=== PATIENT | male | born 1980 | race Caucasian/White ===

== ENCOUNTER 2022-04-26 04:46 | Observation (INO) | payer MEDICAID ==
[2022-04-26] VITALS (9 sets, daily range): BP systolic 107–125; BP diastolic 61–100
[~2022-04-26] VITALS: Ht 167.6 cm; Wt 90.9 kg
[2022-04-26 07:36] LABS: BASOPHILS # (AUTO) 0.2 X10'3 (0-0.2); BASOPHILS % (AUTO) 1.2 % (0-1); EOSINOPHILS # (AUTO) 0.4 X10'3 (0-0.9); EOSINOPHILS % (AUTO) 2.8 % (0-6); HEMATOCRIT 48.5 % (42.0-52.0); LYMPHOCYTES # (AUTO) 3.6 X10'3 (1.1-4.8); MEAN CORPUSCULAR HEMOGLOBIN 27.8 PG (27.0-31.0); MEAN CORPUSCULAR HGB CONC 33.1 g/dL (33.0-36.5); MEAN CORPUSCULAR VOLUME 84.1 FL (78-98); MEAN PLATELET VOLUME 7.6 FL (7.4-10.4); MONOCYTES % (AUTO) 6.7 % (2-12); NEUTROPHILS # (AUTO) 9.2 X10'3 (1.8-7.7); NEUTROPHILS % (AUTO) 64.3 % (42-75); PLATELET COUNT 345 X10'3 (140-440); RED BLOOD COUNT 5.76 X10'6 (4.70-6.10); RED CELL DISTRIBUTION WIDTH 14.1 % (11.5-14.5); WHITE BLOOD COUNT 14.2 X10'3 (4.5-11.0)
[2022-04-26 07:48] LABS: ALANINE AMINOTRANSFERASE 34 U/L (12-78); ALBUMIN 4.1 G/DL (3.4-5.0); ALKALINE PHOSPHATASE 76 IU/L (46-116); ANION GAP 11 (8-16); ASPARTATE AMINO TRANSFERASE 18 U/L (10-37); BILIRUBIN,TOTAL 0.5 MG/DL (0.1-1.0); BLOOD UREA NITROGEN 24 MG/DL (7-18); BUN/CREATININE RATIO 28.2 (5.4-32.0); CALCIUM 9.4 MG/DL (8.5-10.1); CHLORIDE 102 MMOL/L (99-107); CREATININE 0.85 MG/DL (0.60-1.10); GLUCOSE 158 MG/DL (70-104); POTASSIUM 3.9 MMOL/L (3.5-5.1); SODIUM 136 MMOL/L (135-145); TOTAL CARBON DIOXIDE 23.4 MMOL/L (24-32); TOTAL PROTEIN 8.3 G/DL (6.4-8.2); eGFR > 90 ML/MIN
--- NOTE | 2022-04-26 10:43 | NUR ---
Pt awake in no acute distress,continues to be monitored, disposition pending.
[2022-04-26] MEDS ORDERED: acetaminophen 325mg tablet PO PRN (11:30)
[2022-04-26] MEDS ORDERED: mag hydrox/Alum hydrox/simeth 30ml oral suspension PO PRN (11:30)
[2022-04-26] MEDS ORDERED: PERFLUTREN PROTEIN-A MICROSPHR (Optison) 0.22 MG/ML 3ML VIAL IV ONE (11:30)
[2022-04-26] MEDS ORDERED: aminophylline 500mg/20ml vial IV PRN (11:30)
[2022-04-26] MEDS ORDERED: ondansetron/PF 4mg/2ml inj IV PRN (11:30)
[2022-04-26] MEDS ORDERED: nitroGLYCERIN 0.4mg SUBLingual tab SL PRN (11:30)
[2022-04-26] MEDS ORDERED: normal saline 1000ml 1,000 ML IV SCH (11:30)
[2022-04-26] MEDS ORDERED: magnesium hydroxide 30ml (MOM) UD suspension PO PRN (11:30)
[2022-04-26] MEDS ORDERED: regadenoson 0.4mg/5ml syringe IV PRN (11:30)
[2022-04-26] MEDS ORDERED: morphine 2 MG/ML inj. syringe IV PRN ×2 (11:30)
[2022-04-26] MEDS ORDERED: metoprolol tartrate 1mg/ml inj IV PRN (11:30)
[2022-04-26] MEDS ORDERED: DEXT30CA6 PO (13:09)
[2022-04-26] MEDS ORDERED: ALBU2.5V10 NEB (13:09)
[2022-04-26] MEDS ORDERED: LISI5TAB22 PO (13:09)
[2022-04-26] MEDS ORDERED: OMEP20CA16 PO (13:09)
[2022-04-26] MEDS ORDERED: PROP20TA6 PO (13:09)
[2022-04-26] MEDS ORDERED: TRAZ-251 PO (13:09)
[2022-04-26] MEDS ORDERED: METF-900 PO (13:09)
[2022-04-26] MEDS ORDERED: ACET-1 PO (13:09)
[2022-04-26] MEDS ORDERED: SULF1TAB45 PO (13:09)
[2022-04-26] MEDS ORDERED: BECL10.62 PO (13:09)
[2022-04-26] MEDS ORDERED: ATOR40TA72 PO (13:09)
[2022-04-26] MEDS ORDERED: SERT-433 PO (13:09)
[2022-04-26] MEDS ORDERED: GABA800T11 PO (13:09)
[2022-04-26] MEDS ORDERED: CYCL-1 PO (13:09)
--- NOTE | 2022-04-26 14:09 | NUR ---
dr mancuso in to assess patient, made aware patient at [place].
[2022-04-26] MEDS ORDERED: propranolol 10mg tablet PO PRN (14:35)
[2022-04-26] MEDS ORDERED: acetaminophen w/codeine (30MG) #3 tablet PO PRN (14:35)
[2022-04-26] MEDS ORDERED: traZODone 50mg tablet PO PRN (14:35)
--- NOTE | 2022-04-26 16:29 | NUR ---
Discontinued pt's IV,applied dressing to site, d/c instructions given, pt verbalized understanding. Pt d/c via ambulatory in good condition.
[2022-04-26] MEDS ORDERED: docusate sod 100mg capsule PO SCH (20:00)
[2022-04-26] MEDS ORDERED: albuterol 2.5 MG/3 ML nebule NEB SCH (21:00)
[2022-04-26] MEDS ORDERED: budesonide 0.5mg/2ml UD nebule IH SCH (21:00)
[2022-04-26] MEDS ORDERED: cyclobenzaprine 10mg tablet PO SCH (21:00)
[2022-04-26] MEDS ORDERED: gabapentin 400mg capsule PO SCH (21:00)
[2022-04-27] MEDS ORDERED: sertraline 50mg tablet PO SCH (08:00)
[2022-04-27] MEDS ORDERED: pantoprazole 40mg Tablet.DR PO SCH (08:00)
[2022-04-27] MEDS ORDERED: lisinopril 5mg tablet PO SCH (08:00)
[2022-04-27] MEDS ORDERED: atorvastatin 20mg tablet PO SCH (08:00)
[2022-04-27] MEDS ORDERED: enoxaparin 40mg/0.4ml syringe SUBCUT SCH (08:00)
== END 2022-04-26 16:35 | disposition home or self-care (01) ==
LOC: ER 04:47 → ED HOLD 11:34
PROVIDERS: ADMIT Family Medicine; ATTEND Family Medicine
DX: R07.89 Other chest pain (principal); F41.9 Anxiety disorder, unspecified; I10 Essential (primary) hypertension; E11.9 Type 2 diabetes mellitus without complications; E78.5 Hyperlipidemia, unspecified; F15.10 Other stimulant abuse, uncomplicated; F17.210 Nicotine dependence, cigarettes, uncomplicated; Z79.899 Other long term (current) drug therapy
CPT/HCPCS: 36415; 71045; 78452; 80053; 83880; 84484; 85025; 93005; 93017; 93306; 96360; 96361; 99285; A9500; G0378; J2785; J7030

== ENCOUNTER 2022-06-18 23:59 | Emergency (ER) | payer MEDICAID ==
[~2022-06-18] VITALS: Ht 167.6 cm; Wt 72.5 kg
[~2022-06-18 23:59] MED LIST: ACET-1 PO; ALBU2.5V10 NEB; ATOR40TA72 PO; BECL10.62 PO; CYCL-1 PO; DEXT30CA6 PO; GABA800T11 PO; LISI5TAB22 PO; METF-900 PO; OMEP20CA16 PO; PROP20TA6 PO; SERT-433 PO; SULF1TAB45 PO; TRAZ-251 PO
[2022-06-19 00:26] VITALS: BP 126/86
== END 2022-06-19 05:26 | disposition left against medical advice (07) ==
LOC: ER 23:59
DX: M79.601 Pain in right arm (principal); Z53.21 Procedure and treatment not carried out due to patient leaving prior to being seen by health care provider

== ENCOUNTER 2022-07-25 18:05 | Emergency (ER) | payer MEDICAID ==
[~2022-07-25] VITALS: Ht 167.6 cm; Wt 90.9 kg
[2022-07-25 18:11] VITALS: BP 142/82
[2022-07-25] MEDS ORDERED: CEPH-585 PO (19:01)
[2022-07-25] MEDS ORDERED: TETanus/Pertussis (Acell)/Diphther VAC/PF (Tdap-Adult) 0.5ml syringe IMVAC ONE (19:05)
[2022-07-25] MEDS ORDERED: ketorolac trometh inj. 60 MG/2 ML VIAL IM ONE (19:05)
[2022-07-25] MEDS ORDERED: LIDOcaine 1% w/EPI 1:100,000 30ml vial (MDV) IJ ONE (19:05)
[2022-07-25] MEDS ORDERED: cephalexin 500mg capsule PO ONE (19:20)
== END 2022-07-25 19:46 | disposition home or self-care (01) ==
LOC: ER 18:06
DX: T80.29XA Infection following other infusion, transfusion and therapeutic injection, initial encounter (principal); Z79.899 Other long term (current) drug therapy; X58.XXXA Exposure to other specified factors, initial encounter; Y93.89 Activity, other specified; Y92.89 Other specified places as the place of occurrence of the external cause; Y99.8 Other external cause status
CPT/HCPCS: 10060; 90471; 90715; 96372; 99284; J1885

== ENCOUNTER 2022-08-27 02:54 | Emergency (ER) | payer MEDICAID ==
[~2022-08-27] VITALS: Ht 167.6 cm; Wt 90.9 kg
[~2022-08-27 02:54] MED LIST changes: +CEPH-585 PO
[2022-08-27 02:58] VITALS: BP 140/90
[2022-08-27] MEDS ORDERED: acetaminophen 325mg tablet PO ONE (04:30)
[2022-08-27] MEDS ORDERED: ketorolac trometh inj. 60 MG/2 ML VIAL IM ONE (04:30)
[2022-08-27] MEDS ORDERED: proCHLORperazine 10 MG/2 ml inj IM ONE (04:30)
== END 2022-08-27 05:03 | disposition home or self-care (01) ==
LOC: ER 02:55
DX: R03.0 Elevated blood-pressure reading, without diagnosis of hypertension (principal); R51.9 Headache, unspecified
CPT/HCPCS: 96372; 99284; J0780; J1885

== ENCOUNTER 2022-10-16 08:29 | Emergency (ER) | payer MEDICAID ==
[~2022-10-16] VITALS: Ht 167.6 cm; Wt 95.0 kg
[2022-10-16 08:35] VITALS: BP 139/89
[2022-10-16] MEDS ORDERED: ibuprofen tablet 400 MG TABLET PO ONE (10:30)
== END 2022-10-16 12:09 | disposition home or self-care (01) ==
LOC: ER 08:30
DX: J02.9 Acute pharyngitis, unspecified (principal); Z20.822 Contact with and (suspected) exposure to COVID-19; Z79.899 Other long term (current) drug therapy; Z79.2 Long term (current) use of antibiotics; Z79.84 Long term (current) use of oral hypoglycemic drugs
CPT/HCPCS: 87502; 87503; 87635; 99283; C9803

== ENCOUNTER 2022-12-05 21:36 | Emergency (ER) | payer MEDICAID ==
[~2022-12-05] VITALS: Ht 167.6 cm; Wt 90.9 kg
[~2022-12-05 21:36] MED LIST changes: +PHEN28OI10 RC
[2022-12-05 21:42] VITALS: BP 132/91
[2022-12-05 21:57] LABS: BASOPHILS # (AUTO) 0.1 X10'3 (0-0.2); BASOPHILS % (AUTO) 0.9 % (0-1); EOSINOPHILS # (AUTO) 0.4 X10'3 (0-0.9); EOSINOPHILS % (AUTO) 4.7 % (0-6); HEMATOCRIT 40.5 % (42.0-52.0); LYMPHOCYTES # (AUTO) 2.7 X10'3 (1.1-4.8); LYMPHOCYTES % (AUTO) 29.7 % (21-51); MEAN CORPUSCULAR HEMOGLOBIN 29.6 PG (27.0-31.0); MEAN CORPUSCULAR HGB CONC 34.6 g/dL (33.0-36.5); MEAN CORPUSCULAR VOLUME 85.5 FL (78-98); MEAN PLATELET VOLUME 7.6 FL (7.4-10.4); MONOCYTES # (AUTO) 0.7 X10'3 (0-0.9); MONOCYTES % (AUTO) 7.5 % (2-12); NEUTROPHILS # (AUTO) 5.3 X10'3 (1.8-7.7); NEUTROPHILS % (AUTO) 57.2 % (42-75); PLATELET COUNT 247 X10'3 (140-440); RED BLOOD COUNT 4.74 X10'6 (4.70-6.10); RED CELL DISTRIBUTION WIDTH 13.6 % (11.5-14.5); WHITE BLOOD COUNT 9.2 X10'3 (4.5-11.0)
[2022-12-05 22:15] LABS: ALANINE AMINOTRANSFERASE 29 U/L (12-78); ALBUMIN 3.6 G/DL (3.4-5.0); ALBUMIN/GLOBULIN RATIO 1.1 (1.1-1.5); ALKALINE PHOSPHATASE 85 IU/L (46-116); ANION GAP 5 (8-16); ASPARTATE AMINO TRANSFERASE 18 U/L (10-37); BILIRUBIN,TOTAL 0.3 MG/DL (0.1-1.0); BLOOD UREA NITROGEN 22 MG/DL (7-18); BUN/CREATININE RATIO 30.1 (5.4-32.0); CALCIUM 9.2 MG/DL (8.5-10.1); CHLORIDE 106 MMOL/L (99-107); CREATININE 0.73 MG/DL (0.60-1.10); GLUCOSE 159 MG/DL (70-104); POTASSIUM 4.4 MMOL/L (3.5-5.1); SODIUM 138 MMOL/L (135-145); TOTAL CARBON DIOXIDE 26.7 MMOL/L (24-32); eGFR > 90 ML/MIN
== END 2022-12-06 00:16 | disposition left against medical advice (07) ==
LOC: ER 21:37
DX: R06.02 Shortness of breath (principal); R07.89 Other chest pain; Z53.21 Procedure and treatment not carried out due to patient leaving prior to being seen by health care provider
CPT/HCPCS: 36415; 80053; 83735; 83880; 84484; 85025; 93005

== ENCOUNTER 2022-12-16 01:08 | Emergency (ER) | payer MEDICAID ==
[~2022-12-16] VITALS: Ht 167.6 cm; Wt 92.7 kg
[2022-12-16 01:37] LABS: BASOPHILS # (AUTO) 0.1 X10'3 (0-0.2); BASOPHILS % (AUTO) 1.1 % (0-1); EOSINOPHILS # (AUTO) 0.3 X10'3 (0-0.9); HEMATOCRIT 40.2 % (42.0-52.0); HEMOGLOBIN 13.8 g/dl (14.0-17.9); LYMPHOCYTES # (AUTO) 2.3 X10'3 (1.1-4.8); LYMPHOCYTES % (AUTO) 27.3 % (21-51); MEAN CORPUSCULAR HEMOGLOBIN 29.3 PG (27.0-31.0); MEAN CORPUSCULAR HGB CONC 34.2 g/dL (33.0-36.5); MEAN CORPUSCULAR VOLUME 85.7 FL (78-98); MEAN PLATELET VOLUME 7.5 FL (7.4-10.4); MONOCYTES # (AUTO) 0.8 X10'3 (0-0.9); MONOCYTES % (AUTO) 9.7 % (2-12); NEUTROPHILS # (AUTO) 4.8 X10'3 (1.8-7.7); NEUTROPHILS % (AUTO) 57.9 % (42-75); PLATELET COUNT 222 X10'3 (140-440); RED CELL DISTRIBUTION WIDTH 13.7 % (11.5-14.5); WHITE BLOOD COUNT 8.3 X10'3 (4.5-11.0)
[2022-12-16 01:40] LABS: ALANINE AMINOTRANSFERASE 26 U/L (12-78); ALBUMIN 3.6 G/DL (3.4-5.0); ALKALINE PHOSPHATASE 98 IU/L (46-116); ANION GAP 10 (8-16); ASPARTATE AMINO TRANSFERASE 13 U/L (10-37); BILIRUBIN,TOTAL 0.5 MG/DL (0.1-1.0); BLOOD UREA NITROGEN 20 MG/DL (7-18); BUN/CREATININE RATIO 29.9 (5.4-32.0); CALCIUM 8.6 MG/DL (8.5-10.1); CHLORIDE 104 MMOL/L (99-107); CREATININE 0.67 MG/DL (0.60-1.10); GLUCOSE 154 MG/DL (70-104); POTASSIUM 3.6 MMOL/L (3.5-5.1); SODIUM 139 MMOL/L (135-145); TOTAL CARBON DIOXIDE 25.1 MMOL/L (24-32); TOTAL PROTEIN 7.3 G/DL (6.4-8.2); eGFR > 90 ML/MIN
[2022-12-16] MEDS ORDERED: ipratropium/albuterol 3ml nebule NEB ONE (03:20)
[2022-12-16] MEDS ORDERED: predniSONE 20 mg tablet PO ONE (03:20)
[2022-12-16] MEDS ORDERED: PRED20TA PO ×3 (04:00→04:01)
[2022-12-16 04:09] VITALS: BP 124/93
== END 2022-12-16 04:11 | disposition home or self-care (01) ==
LOC: ER 01:10
DX: J40 Bronchitis, not specified as acute or chronic (principal); E11.9 Type 2 diabetes mellitus without complications; F17.210 Nicotine dependence, cigarettes, uncomplicated; F15.10 Other stimulant abuse, uncomplicated; Z90.49 Acquired absence of other specified parts of digestive tract; Z79.899 Other long term (current) drug therapy; Z79.1 Long term (current) use of non-steroidal anti-inflammatories (NSAID); Z79.2 Long term (current) use of antibiotics
CPT/HCPCS: 36415; 71045; 80053; 83880; 84484; 85025; 93005; 94640; 99285; J7512; 94760

== ENCOUNTER 2023-01-31 02:01 | Emergency (ER) | payer MEDICAID ==
[~2023-01-31] VITALS: Ht 167.6 cm; Wt 92.3 kg
[~2023-01-31 02:01] MED LIST changes: +PRED20TA PO
[2023-01-31] MEDS ORDERED: albuterol 2.5 MG/3 ML nebule NEB ONE (02:10)
[2023-01-31 02:11] VITALS: BP 138/101
[2023-01-31 02:35] LABS: BASOPHILS # (AUTO) 0.1 X10'3 (0-0.2); BASOPHILS % (AUTO) 1.1 % (0-1); EOSINOPHILS # (AUTO) 0.4 X10'3 (0-0.9); HEMATOCRIT 41.4 % (42.0-52.0); HEMOGLOBIN 13.9 g/dl (14.0-17.9); MEAN CORPUSCULAR HEMOGLOBIN 28.7 PG (27.0-31.0); MEAN CORPUSCULAR HGB CONC 33.6 g/dL (33.0-36.5); MEAN CORPUSCULAR VOLUME 85.5 FL (78-98); MEAN PLATELET VOLUME 7.6 FL (7.4-10.4); MONOCYTES # (AUTO) 0.9 X10'3 (0-0.9); MONOCYTES % (AUTO) 9.6 % (2-12); NEUTROPHILS # (AUTO) 5.7 X10'3 (1.8-7.7); NEUTROPHILS % (AUTO) 63.3 % (42-75); PLATELET COUNT 310 X10'3 (140-440); RED BLOOD COUNT 4.85 X10'6 (4.70-6.10); RED CELL DISTRIBUTION WIDTH 14.1 % (11.5-14.5)
[2023-01-31 02:43] LABS: ALANINE AMINOTRANSFERASE 19 U/L (12-78); ALBUMIN 3.4 G/DL (3.4-5.0); ALBUMIN/GLOBULIN RATIO 0.9 (1.1-1.5); ALKALINE PHOSPHATASE 91 IU/L (46-116); ANION GAP 8 (8-16); ASPARTATE AMINO TRANSFERASE 11 U/L (10-37); BILIRUBIN,TOTAL 0.2 MG/DL (0.1-1.0); BLOOD UREA NITROGEN 20 MG/DL (7-18); CALCIUM 8.7 MG/DL (8.5-10.1); CHLORIDE 105 MMOL/L (99-107); CREATININE 0.69 MG/DL (0.60-1.10); GLUCOSE 156 MG/DL (70-104); POTASSIUM 4.1 MMOL/L (3.5-5.1); SODIUM 139 MMOL/L (135-145); TOTAL CARBON DIOXIDE 25.9 MMOL/L (24-32); TOTAL PROTEIN 7.1 G/DL (6.4-8.2); eGFR > 90 ML/MIN
[2023-01-31 02:44] LABS: MAGNESIUM 2.2 MG/DL (1.5-2.4)
[2023-01-31 03:02] LABS: URINE AMPHETAMINE SCREEN POSITIVE (Neg); URINE BARBITUATE SCREEN NEGATIVE (Neg); URINE BENZODIAZEPINES SCREEN NEGATIVE (Neg); URINE CANNABINOID SCREEN POSITIVE (Neg); URINE COCAINE SCREEN NEGATIVE (Neg); URINE METHADONE SCREEN NEGATIVE (Neg); URINE OPIATE SCREEN NEGATIVE (Neg); URINE PHENCYCLIDINE SCREEN NEGATIVE (Neg)
== END 2023-01-31 05:44 | disposition left against medical advice (07) ==
LOC: ER 02:02
DX: R07.89 Other chest pain (principal); F15.10 Other stimulant abuse, uncomplicated; I10 Essential (primary) hypertension; J45.909 Unspecified asthma, uncomplicated; E11.9 Type 2 diabetes mellitus without complications; Z79.899 Other long term (current) drug therapy; Z79.84 Long term (current) use of oral hypoglycemic drugs
CPT/HCPCS: 36415; 71045; 80053; 80305; 83735; 83880; 84484; 85025; 85610; 93005; 94640; 94760; 99285

== ENCOUNTER 2023-04-02 12:28 | Emergency (ER) | payer MEDICAID ==
[~2023-04-02] VITALS: Ht 167.6 cm; Wt 93.0 kg
[2023-04-02 12:42] VITALS: BP 129/87
--- NOTE | 2023-04-02 13:40 | NUR ---
XRAY AT [facility]
[2023-04-02] MEDS ORDERED: SULF1TAB49 PO (14:27)
[2023-04-02] MEDS ORDERED: CEPH-585 PO (14:27)
== END 2023-04-02 14:48 | disposition home or self-care (01) ==
LOC: ER 12:28
DX: L02.512 Cutaneous abscess of left hand (principal); L02.511 Cutaneous abscess of right hand; I10 Essential (primary) hypertension; J45.909 Unspecified asthma, uncomplicated; E11.9 Type 2 diabetes mellitus without complications; F15.10 Other stimulant abuse, uncomplicated; Z79.899 Other long term (current) drug therapy
CPT/HCPCS: 73090; 99283

== ENCOUNTER 2023-06-01 03:55 | Emergency (ER) | payer MEDICAID ==
[~2023-06-01] VITALS: Ht 167.6 cm; Wt 90.9 kg
--- NOTE | 2023-06-01 04:19 | NUR ---
CALL PLACED TO POISON CONTROL, PER PT HE TOOK APPROX 7 10MG FLEXERIL AND 3-4 25 MG PROPRANOLOL OVER A ONE HOUR PERIOD BETWEEN [id number]. CURRENTLY HIS VSS LAST BP 123/73 HR NSR 76 RR 16. PER POISON CONTROL THIS IS REASSURING. LABS AT PROVIDER'S DISCRETION. WE SHOULD OBSERVE PT AND MONITOR HIS VITAL SIGNS FOR TWO HOURS. IF PT DEVELOPS HYPOTENSION NOT RESPONSIVE TO FLUIDS OR CHANGES IN MENTATION WE SHOULD CALL POISON CONTROL. CONCERN FOR HYPOTENSION AND ANTICHOLENERGIC EFFECTS SECONDARY TO MEDICATIONS TAKEN. PER POISON CONTROL, STRONG LIKELIHOOD THAT PT WILL TOLERATE STATED DOSAGES OF STATED MEDICATIONS WELL.
[2023-06-01 04:42] VITALS: TEMP 98
[2023-06-01] MEDS ORDERED: ipratropium/albuterol 3ml nebule NEB ONE (05:20)
[2023-06-01 05:35] VITALS: PULSE 73; RESP 20; O2SAT 96
[2023-06-01 05:42] VITALS: PULSE 75; RESP 18; O2SAT 97
[2023-06-01 06:13] VITALS: BP 104/79; PULSE 72; RESP 12; O2SAT 100
== END 2023-06-01 06:17 | disposition home or self-care (01) ==
LOC: ER 03:56
DX: T48.1X1A Poisoning by skeletal muscle relaxants [neuromuscular blocking agents], accidental (unintentional), initial encounter (principal); F41.9 Anxiety disorder, unspecified; J45.909 Unspecified asthma, uncomplicated; I10 Essential (primary) hypertension; E11.9 Type 2 diabetes mellitus without complications; F15.10 Other stimulant abuse, uncomplicated; Y92.89 Other specified places as the place of occurrence of the external cause
CPT/HCPCS: 93005; 94640; 94760; 99283

== ENCOUNTER 2023-06-21 16:02 | Emergency (ER) | payer MEDICAID ==
[~2023-06-21] VITALS: Ht 167.6 cm; Wt 81.8 kg
[2023-06-21 16:19] VITALS: BP 152/101; PULSE 86; RESP 16; TEMP 97.7; O2SAT 96
== END 2023-06-21 22:00 | disposition left against medical advice (07) ==
LOC: ER 16:03
DX: M79.672 Pain in left foot (principal); Z53.21 Procedure and treatment not carried out due to patient leaving prior to being seen by health care provider
CPT/HCPCS: 99281

== ENCOUNTER 2023-07-27 11:17 | Emergency (ER) | payer MEDICAID ==
[~2023-07-27] VITALS: Ht 167.6 cm; Wt 77.4 kg
[2023-07-27 11:24] VITALS: TEMP 98.4
[2023-07-27] MEDS ORDERED: ipratropium/albuterol 3ml nebule NEB STA (11:50)
[2023-07-27 12:02] VITALS: PULSE 99; RESP 20; O2SAT 98
[2023-07-27 12:07] VITALS: PULSE 102; RESP 18; O2SAT 99
[2023-07-27 12:19] LABS: EOSINOPHILS # (AUTO) 0.5 X10'3 (0-0.9); HEMOGLOBIN 14.7 g/dl (14.0-17.9); WHITE BLOOD COUNT 12.2 X10'3 (4.5-11.0)
[2023-07-27 12:21] LABS: BASOPHILS # (AUTO) 0.1 X10'3 (0-0.2); BASOPHILS % (AUTO) 0.9 % (0-1); EOSINOPHILS % (AUTO) 4.2 % (0-6); LYMPHOCYTES # (AUTO) 1.9 X10'3 (1.1-4.8); LYMPHOCYTES % (AUTO) 15.3 % (21-51); MEAN CORPUSCULAR HEMOGLOBIN 28.5 PG (27.0-31.0); MEAN CORPUSCULAR HGB CONC 33.4 g/dL (33.0-36.5); MEAN CORPUSCULAR VOLUME 85.4 FL (78-98); MEAN PLATELET VOLUME 7.7 FL (7.4-10.4); MONOCYTES # (AUTO) 1.1 X10'3 (0-0.9); MONOCYTES % (AUTO) 8.9 % (2-12); NEUTROPHILS # (AUTO) 8.6 X10'3 (1.8-7.7); NEUTROPHILS % (AUTO) 70.7 % (42-75); PLATELET COUNT 291 X10'3 (140-440); RED BLOOD COUNT 5.15 X10'6 (4.70-6.10); RED CELL DISTRIBUTION WIDTH 14.2 % (11.5-14.5)
[2023-07-27] MEDS ORDERED: PRED20TA PO (12:25)
[2023-07-27 12:34] LABS: ALANINE AMINOTRANSFERASE 25 U/L (12-78); ALBUMIN 3.7 G/DL (3.4-5.0); ALBUMIN/GLOBULIN RATIO 0.9 (1.1-1.5); ALKALINE PHOSPHATASE 102 IU/L (46-116); ANION GAP 10 (8-16); ASPARTATE AMINO TRANSFERASE 14 U/L (10-37); BILIRUBIN,TOTAL 0.2 MG/DL (0.1-1.0); BLOOD UREA NITROGEN 22 MG/DL (7-18); CALCIUM 9.6 MG/DL (8.5-10.1); CHLORIDE 101 MMOL/L (99-107); CREATININE 0.71 MG/DL (0.60-1.10); GLUCOSE 193 MG/DL (70-104); POTASSIUM 4.4 MMOL/L (3.5-5.1); SODIUM 137 MMOL/L (135-145); TOTAL CARBON DIOXIDE 26.5 MMOL/L (24-32); TOTAL PROTEIN 7.7 G/DL (6.4-8.2); eCRCL 124 ML/MIN; eGFR > 90 ML/MIN
[2023-07-27 12:41] LABS: PRO BRAIN NATRIURETIC PEPTIDE 73 PG/ML (0-125)
[2023-07-27 13:04] VITALS: BP 127/82; PULSE 97; RESP 18
[2023-07-27] MEDS ORDERED: dexamethasone sod phosphate 10mg/ml inj PO STA (13:11)
== END 2023-07-27 13:53 | disposition home or self-care (01) ==
LOC: ER 11:18
DX: R07.9 Chest pain, unspecified (principal); J45.909 Unspecified asthma, uncomplicated; I10 Essential (primary) hypertension; E11.9 Type 2 diabetes mellitus without complications; Q82.8 Other specified congenital malformations of skin; F12.10 Cannabis abuse, uncomplicated; F15.10 Other stimulant abuse, uncomplicated
CPT/HCPCS: 36415; 71045; 80053; 83880; 84484; 85025; 93005; 94640; 99285; J1100; 94760

== ENCOUNTER 2023-08-14 11:43 | Emergency (ER) | payer MEDICAID ==
[~2023-08-14] VITALS: Ht 167.6 cm; Wt 90.1 kg
[2023-08-14 12:13] VITALS: BP 144/81; TEMP 98; O2SAT 97
[2023-08-14] MEDS ORDERED: methylPREDNISolone sod succ 125mg/2ml vial IV ONE (13:15)
[2023-08-14] MEDS ORDERED: ipratropium/albuterol 3ml nebule NEB PRN (13:20)
[2023-08-14] MEDS ORDERED: acetaminophen 325mg tablet PO ONE (13:20)
[2023-08-14] MEDS ORDERED: ipratropium/albuterol 3ml nebule NEB ONE ×2 (13:30)
[2023-08-14] MEDS ORDERED: methylPREDNISolone sod succ 125mg/2ml vial IM ONE (13:45)
[2023-08-14 13:50] VITALS: PULSE 70; PULSE 71; RESP 18
[2023-08-14] MEDS ORDERED: PRED20TA PO (14:17)
[2023-08-14] MEDS ORDERED: ipratropium/albuterol 3ml nebule NEB SCH (15:00)
== END 2023-08-14 14:37 | disposition home or self-care (01) ==
LOC: ER 11:43
DX: K08.89 Other specified disorders of teeth and supporting structures (principal); J44.1 Chronic obstructive pulmonary disease with (acute) exacerbation; I10 Essential (primary) hypertension; E11.9 Type 2 diabetes mellitus without complications; F12.90 Cannabis use, unspecified, uncomplicated; F15.90 Other stimulant use, unspecified, uncomplicated; Z79.2 Long term (current) use of antibiotics; Z79.899 Other long term (current) drug therapy
CPT/HCPCS: 94640; 96372; 99283; J2930; 94760

== ENCOUNTER 2024-01-20 10:18 | Inpatient (IN) | payer MEDICAID ==
[~2024-01-20] VITALS: Ht 167.6 cm; Wt 76.0 kg
[2024-01-20 10:39] VITALS: TEMP 98.2
[2024-01-20 11:21] LABS: BASOPHILS # (AUTO) 0.1 X10'3 (0-0.2); BASOPHILS % (AUTO) 0.9 % (0-1); EOSINOPHILS # (AUTO) 0.3 X10'3 (0-0.9); EOSINOPHILS % (AUTO) 4.8 % (0-6); HEMATOCRIT 40.7 % (42.0-52.0); HEMOGLOBIN 13.7 g/dl (14.0-17.9); LYMPHOCYTES # (AUTO) 1.5 X10'3 (1.1-4.8); LYMPHOCYTES % (AUTO) 22.1 % (21-51); MEAN CORPUSCULAR HEMOGLOBIN 28.4 PG (27.0-31.0); MEAN CORPUSCULAR HGB CONC 33.6 g/dL (33.0-36.5); MEAN CORPUSCULAR VOLUME 84.4 FL (78-98); MONOCYTES # (AUTO) 0.7 X10'3 (0-0.9); NEUTROPHILS # (AUTO) 4.2 X10'3 (1.8-7.7); NEUTROPHILS % (AUTO) 62.2 % (42-75); PLATELET COUNT 277 X10'3 (140-440); RED BLOOD COUNT 4.82 X10'6 (4.70-6.10); RED CELL DISTRIBUTION WIDTH 13.6 % (11.5-14.5); WHITE BLOOD COUNT 6.8 X10'3 (4.5-11.0)
[2024-01-20 11:30] LABS: ALBUMIN 3.3 G/DL (3.4-5.0); ANION GAP 9 (8-16); BLOOD UREA NITROGEN 16 MG/DL (7-18); BUN/CREATININE RATIO 24.6 (10.0-20.0); CALCIUM 8.5 MG/DL (8.5-10.1); CHLORIDE 105 MMOL/L (99-107); CREATININE 0.65 MG/DL (0.60-1.10); GLUCOSE 151 MG/DL (70-104); POTASSIUM 3.9 MMOL/L (3.5-5.1); SODIUM 139 MMOL/L (135-145); TOTAL CARBON DIOXIDE 25.1 MMOL/L (24-32); eCRCL 135 ML/MIN; eGFR > 90 ML/MIN
[2024-01-20 12:33] LABS: BILIRUBIN,URINE SMALL (Neg); CLARITY,URINE SLIGHTLY CLOUDY (Clear); COLOR,URINE YELLOW (Yellow); GLUCOSE, URINE 250 mg/dl (Neg); KETONES,URINE TRACE mg/dl (Neg); LEUKOCYTE ESTERASE ,URINE NEGATIVE (Neg); NITRITES, URINE NEGATIVE (Neg); OCCULT BLOOD,URINE NEGATIVE (Neg); PROTEIN,URINE NEGATIVE (Neg)
[2024-01-20] MEDS: piperacillin/tazo 3.375gm/50ml 50 ML IV ONE (12:36)
[2024-01-20 12:43] LABS: UA COLLECTION TYPE NON-SPECIFIED; WBC,URINE 0-4 /HPF (0-4)
[2024-01-20 12:44] LABS: BACTERIA,URINE FEW /HPF (Neg); MUCUS STRANDS MANY /LPF (Neg); SQUAMOUS EPITHELIAL CELL,UR FEW /LPF (FEW)
[2024-01-20] MEDS: VANCOmycin 2,000MG in NS 500ml IV soln IV ONE (13:47)
[2024-01-20] MEDS ORDERED: mag hydrox/Alum hydrox/simeth 30ml oral suspension PO PRN (14:00)
[2024-01-20] MEDS ORDERED: magnesium 4gm in 100ml NS 100 ML IV PRN (14:00)
[2024-01-20] MEDS ORDERED: ondansetron/PF 4mg/2ml inj IV PRN (14:00)
[2024-01-20] MEDS ORDERED: potassium Cl 40MEQ/1/2NS 520ml 520 ML IV PRN (14:00)
[2024-01-20] MEDS ORDERED: magnesium 2GM in 50ml NS 50 ML IV PRN (14:00)
[2024-01-20] MEDS ORDERED: acetaminophen 325mg tablet PO PRN (14:00)
[2024-01-20] MEDS ORDERED: magnesium hydroxide 30ml (MOM) UD suspension PO PRN (14:00)
[2024-01-20] MEDS ORDERED: magnesium Cl slow-release 64mg tablet PO PRN (14:00)
[2024-01-20] MEDS ORDERED: potassium Cl 20 mEq SR tablet PO PRN ×2 (14:00)
[2024-01-20] MEDS ORDERED: ipratropium/albuterol 3ml nebule NEB PRN (14:05)
[2024-01-20] MEDS: ipratropium/albuterol 3ml nebule NEB SCH (14:31)
[2024-01-20 14:32] VITALS: PULSE 82; RESP 14; O2SAT 98
[2024-01-20 14:40] VITALS: PULSE 81; RESP 16
[2024-01-20 14:49] VITALS: BP 103/67; PULSE 74; RESP 15; O2SAT 97
[2024-01-20] MEDS: normal saline 1000ml 1,000 ML IV SCH (14:50)
[2024-01-20] MEDS: nicotine 14mg patch - 24hr TD ONE (14:50)
[2024-01-20] MEDS: methylPREDNISolone sod succ 125mg/2ml vial IV ONE (14:50)
[2024-01-20 14:54] LABS: MAGNESIUM 1.9 MG/DL (1.5-2.4); POTASSIUM 3.8 MMOL/L (3.5-5.1)
[2024-01-20] MEDS ORDERED: glucagon, human recombinant 1mg kit SUBCUT PRN (15:40)
[2024-01-20] MEDS ORDERED: dextrose 50%-water 50ml dispensing syringe IV PRN ×2 (15:40)
[2024-01-20] MEDS ORDERED: DEXTROSE 15 GM of carb/4 tabs (each vial/BOTTLE has 4 tablets) PO PRN ×2 (15:40)
[2024-01-20] MEDS ORDERED: piperacillin/tazo 3.375gm/50ml 50 ML IV SCH (16:00)
[2024-01-20] MEDS ORDERED: morphine 2 MG/ML inj. syringe IV PRN (16:20)
[2024-01-20] MEDS ORDERED: insulin Lispro (HumaLOG) vial - multi-dose SQ SCH ×2 (17:00→18:00)
[2024-01-20] MEDS ORDERED: methylPREDNISolone sod succ 125mg/2ml vial IV SCH (20:00)
[2024-01-20] MEDS ORDERED: K and/or MAG REPLACEMENT MC SCH (20:00)
[2024-01-20] MEDS ORDERED: docusate sod 100mg capsule PO SCH (20:00)
[2024-01-20] MEDS ORDERED: enoxaparin 30mg/0.3ml syringe SQ SCH (20:00)
[2024-01-20] MEDS ORDERED: insulin glargine (Lantus) pen - multi-dose SQ SCH (21:00)
[2024-01-20] MEDS ORDERED: vancomycin/NS 1 GM ADD-VANTAGE 250 ML IV SCH (21:00)
[2024-01-21] MEDS ORDERED: VANCOMYCIN LEVEL IV ONE (12:30)
== END 2024-01-20 16:34 | disposition left against medical advice (07) | DRG 420 ==
LOC: ER 10:19 → ED HOLD 14:01
PROVIDERS: ADMIT Family Medicine; ATTEND Family Medicine
DX: E11.621 Type 2 diabetes mellitus with foot ulcer (principal); J44.1 Chronic obstructive pulmonary disease with (acute) exacerbation; F17.210 Nicotine dependence, cigarettes, uncomplicated; G89.4 Chronic pain syndrome; I10 Essential (primary) hypertension; F32.A Depression, unspecified; F41.9 Anxiety disorder, unspecified; Z53.29 Procedure and treatment not carried out because of patient's decision for other reasons; F15.10 Other stimulant abuse, uncomplicated; Z91.199 Patient's noncompliance with other medical treatment and regimen due to unspecified reason
CPT/HCPCS: 36415; 73630; 80048; 81001; 83036; 83605; 83735; 84132; 84145; 85025; 87040; 94640; 94760; 99291; G0378; J1815; J2543; J2930; J3370; J7030; J7040

== ENCOUNTER 2024-09-02 08:52 | Inpatient (IN) | payer MEDICAID ==
[~2024-09-02] VITALS: Ht 167.6 cm; Wt 90.9 kg
[~2024-09-02 08:52] MED LIST changes: -CEPH-585 PO; +GABA-1555 PO; -GABA800T11 PO
[2024-09-02 10:00] LABS: BASOPHILS # (AUTO) 0.1 X10'3 (0-0.2); BASOPHILS % (AUTO) 0.8 % (0-1); EOSINOPHILS # (AUTO) 0.4 X10'3 (0-0.9); EOSINOPHILS % (AUTO) 3.8 % (0-6); HEMATOCRIT 36.9 % (42.0-52.0); HEMOGLOBIN 12.1 g/dl (14.0-17.9); LYMPHOCYTES # (AUTO) 2.3 X10'3 (1.1-4.8); LYMPHOCYTES % (AUTO) 20.8 % (21-51); MEAN CORPUSCULAR HEMOGLOBIN 26.3 PG (27.0-31.0); MEAN CORPUSCULAR HGB CONC 32.8 g/dL (33.0-36.5); MEAN CORPUSCULAR VOLUME 80.2 FL (78-98); MONOCYTES # (AUTO) 1.2 X10'3 (0-0.9); MONOCYTES % (AUTO) 10.6 % (2-12); PLATELET COUNT 313 X10'3 (140-440)
[2024-09-02] MEDS: CefTRIAXone 2gm/D5W 50ml BAG 50 ML IV ONE (10:14)
[2024-09-02] MEDS: HYDROmorphone 1 mg/ml syringe IV ONE (10:14)
[2024-09-02] MEDS: normal saline 1000ml 1,000 ML IV ONE (10:14)
[2024-09-02 10:24] LABS: ALANINE AMINOTRANSFERASE 17 U/L (12-78); ALBUMIN 2.8 G/DL (3.4-5.0); ALBUMIN/GLOBULIN RATIO 0.6 (1.1-1.5); ALKALINE PHOSPHATASE 100 IU/L (46-116); ANION GAP 7 (8-16); ASPARTATE AMINO TRANSFERASE 9 U/L (10-37); BILIRUBIN,TOTAL 0.3 MG/DL (0.1-1.0); BLOOD UREA NITROGEN 14 MG/DL (7-18); BUN/CREATININE RATIO 17.1 (10.0-20.0); C-REACTIVE PROTEIN 11.91 MG/DL (0.0-0.5); CALCIUM 8.2 MG/DL (8.5-10.1); CHLORIDE 100 MMOL/L (99-107); CREATININE 0.82 MG/DL (0.60-1.10); GLUCOSE 203 MG/DL (70-104); POTASSIUM 3.8 MMOL/L (3.5-5.1); PRO BRAIN NATRIURETIC PEPTIDE 51 PG/ML (0-125); SODIUM 135 MMOL/L (135-145); TOTAL CARBON DIOXIDE 28.3 MMOL/L (24-32); TOTAL PROTEIN 7.7 G/DL (6.4-8.2); eCRCL 106 ML/MIN; eGFR > 90 ML/MIN
[2024-09-02] MEDS: VANCOMYCIN 2GM/400ML H20 (PEG) 400 ML IV ONE (11:13)
[2024-09-02] MEDS ORDERED: mag hydrox/Alum hydrox/simeth 30ml oral suspension PO PRN (12:10)
[2024-09-02] MEDS ORDERED: ondansetron/PF 4mg/2ml inj IV PRN (12:10)
[2024-09-02] MEDS ORDERED: acetaminophen 325mg tablet PO PRN ×2 (12:10)
[2024-09-02] MEDS ORDERED: HYDROcodone/acetaminophen 5mg/325mg tablet PO PRN (12:10)
[2024-09-02] MEDS ORDERED: magnesium Cl slow-release 64mg tablet PO PRN (12:10)
[2024-09-02] MEDS ORDERED: potassium Cl 20 mEq SR tablet PO PRN ×2 (12:10)
[2024-09-02] MEDS ORDERED: magnesium sulf-water 4G/100mL 100 ML IV PRN (12:10)
[2024-09-02] MEDS ORDERED: potassium Cl 40MEQ/1/2NS 520ml 520 ML IV PRN (12:10)
[2024-09-02] MEDS ORDERED: magnesium sulf-water 2g/50mL 50 ML IV PRN (12:10)
[2024-09-02 12:38] LABS: LIPASE 20 U/L (16-77); MAGNESIUM 2.2 MG/DL (1.5-2.4)
[2024-09-02 13:34] LABS: HEMOGLOBIN A1C 7.7 % (4.5-6.2)
[2024-09-02] MEDS ORDERED: NICO4GUM29 PO (14:16)
[2024-09-02] MEDS ORDERED: FLUT1BLS4 INH (14:16)
[2024-09-02] MEDS ORDERED: ATOM25CA PO (14:16)
[2024-09-02] MEDS: normal saline 1000ml 1,000 ML IV SCH (14:33)
[2024-09-02] MEDS: metroNIDAZOLE-Flagyl 500mg/NS 100 ML IV SCH (14:34)
[2024-09-02] MEDS ORDERED: propranolol 10mg tablet PO PRN (14:45)
[2024-09-02] MEDS ORDERED: lisinopril 5mg tablet PO SCH (14:45)
[2024-09-02] MEDS ORDERED: traZODone 50mg tablet PO PRN (14:45)
[2024-09-02] MEDS ORDERED: DEXTROSE 15 GM of carb/4 tabs (each vial/BOTTLE has 4 tablets) PO PRN ×2 (14:50)
[2024-09-02] MEDS ORDERED: glucagon, human recombinant 1mg kit SUBCUT PRN (14:50)
[2024-09-02] MEDS ORDERED: dextrose 50%-water 50ml dispensing syringe IV PRN ×2 (14:50)
[2024-09-02] MEDS: nicotine 21mg patch - 24 hr TD SCH (15:05)
[2024-09-02] MEDS ORDERED: GADOTERATE MEGLUMINE 7.5 MMOL/15 ML VIAL IV ONE (17:17)
[2024-09-02 17:54] LABS: BILIRUBIN,URINE NEGATIVE (Neg); CLARITY,URINE SLIGHTLY CLOUDY (Clear); COLOR,URINE YELLOW (Yellow); GLUCOSE, URINE 250 mg/dl (Neg); KETONES,URINE NEGATIVE (Neg); LEUKOCYTE ESTERASE ,URINE NEGATIVE (Neg); NITRITES, URINE NEGATIVE (Neg); OCCULT BLOOD,URINE NEGATIVE (Neg); PROTEIN,URINE NEGATIVE (Neg); UROBILINOGEN,URINE 0.2 E.U/dL (0.2-1.0)
[2024-09-02 17:59] LABS: UA COLLECTION TYPE VOIDED
[2024-09-02 18:00] LABS: SQUAMOUS EPITHELIAL CELL,UR FEW /LPF (FEW); WBC,URINE 0-4 /HPF (0-4)
[2024-09-02 18:01] LABS: RBC,URINE 0-2 /HPF (0-2)
[2024-09-02 18:02] LABS: BACTERIA,URINE FEW /HPF (Neg)
[2024-09-02 18:13] LABS: URINE AMPHETAMINE SCREEN POSITIVE (Neg); URINE BARBITUATE SCREEN NEGATIVE (Neg); URINE BENZODIAZEPINES SCREEN NEGATIVE (Neg); URINE CANNABINOID SCREEN NEGATIVE (Neg); URINE COCAINE SCREEN NEGATIVE (Neg); URINE METHADONE SCREEN NEGATIVE (Neg); URINE OPIATE SCREEN NEGATIVE (Neg); URINE PHENCYCLIDINE SCREEN NEGATIVE (Neg)
[2024-09-02 19:00] VITALS: BP 119/68; PULSE 82; RESP 15; TEMP 97.4; O2SAT 96
[2024-09-02] MEDS: INSULIN LISPRO 100 UNIT/ML INSULN.PEN MULTI-DOSE SQ SCH ×2 (19:11→19:36)
[2024-09-02] MEDS: VANCOMYCIN 1GM 200ML H20 (PEG) 200 ML IV SCH (19:30)
[2024-09-02] MEDS: K and/or MAG REPLACEMENT MC SCH (20:00)
[2024-09-02] MEDS: lisinopril 5mg tablet PO SCH (21:26)
[2024-09-02] MEDS: cyclobenzaprine 10mg tablet PO SCH (21:26)
[2024-09-02] MEDS: HYDROcodone/acetaminophen 10/325mg tab PO PRN (21:27)
[2024-09-02] MEDS: gabapentin 400mg capsule PO SCH (21:27)
[2024-09-02] MEDS: insulin glargine (Lantus) pen - multi-dose SQ SCH (21:31)
[2024-09-02 22:00] VITALS: BP 133/84; PULSE 75; RESP 16; TEMP 99.2; O2SAT 97
[2024-09-03] VITALS (10 sets, daily range): BP systolic 92–125; BP diastolic 53–66; PULSE 73–99; RESP 13–18; TEMP 97.5–98.5; O2SAT 93–99
[2024-09-03 06:19] LABS: BASOPHILS # (AUTO) 0.1 X10'3 (0-0.2); EOSINOPHILS # (AUTO) 0.7 X10'3 (0-0.9); EOSINOPHILS % (AUTO) 6.6 % (0-6); HEMATOCRIT 34.3 % (42.0-52.0); HEMOGLOBIN 11.4 g/dl (14.0-17.9); LYMPHOCYTES # (AUTO) 2.4 X10'3 (1.1-4.8); LYMPHOCYTES % (AUTO) 24.4 % (21-51); MEAN CORPUSCULAR HEMOGLOBIN 26.6 PG (27.0-31.0); MEAN CORPUSCULAR HGB CONC 33.4 g/dL (33.0-36.5); MEAN CORPUSCULAR VOLUME 79.8 FL (78-98); MEAN PLATELET VOLUME 7.7 FL (7.4-10.4); MONOCYTES % (AUTO) 10.3 % (2-12); NEUTROPHILS # (AUTO) 5.7 X10'3 (1.8-7.7); NEUTROPHILS % (AUTO) 57.7 % (42-75); PLATELET COUNT 282 X10'3 (140-440); RED CELL DISTRIBUTION WIDTH 15.9 % (11.5-14.5); WHITE BLOOD COUNT 9.9 X10'3 (4.5-11.0)
[2024-09-03 06:31] LABS: PROTHROMBIN TIME 10.6 SECONDS (9.0-12.0)
[2024-09-03 06:36] LABS: ALANINE AMINOTRANSFERASE 13 U/L (12-78); ALBUMIN 2.4 G/DL (3.4-5.0); ALBUMIN/GLOBULIN RATIO 0.5 (1.1-1.5); ALKALINE PHOSPHATASE 93 IU/L (46-116); ANION GAP 6 (8-16); ASPARTATE AMINO TRANSFERASE 7 U/L (10-37); BILIRUBIN,TOTAL 0.4 MG/DL (0.1-1.0); BLOOD UREA NITROGEN 12 MG/DL (7-18); BUN/CREATININE RATIO 17.4 (10.0-20.0); CALCIUM 8.3 MG/DL (8.5-10.1); CHLORIDE 102 MMOL/L (99-107); CREATININE 0.69 MG/DL (0.60-1.10); GLUCOSE 168 MG/DL (70-104); POTASSIUM 4.5 MMOL/L (3.5-5.1); SODIUM 137 MMOL/L (135-145); TOTAL CARBON DIOXIDE 29.4 MMOL/L (24-32); TOTAL PROTEIN 7.1 G/DL (6.4-8.2); eCRCL 126 ML/MIN; eGFR > 90 ML/MIN
[2024-09-03] MEDS: atorvastatin 20mg tablet PO SCH (08:47)
[2024-09-03] MEDS: pantoprazole 40mg Tablet.DR PO SCH (08:47)
[2024-09-03] MEDS: atomoxetine 25mg capsule PO SCH (08:49)
[2024-09-03] MEDS: enoxaparin 30mg/0.3ml syringe SUBCUT SCH (08:49)
[2024-09-03] MEDS: CefTRIAXone/D5W-Rocephin 1gm 50 ML IV SCH (08:49)
[2024-09-03] MEDS ORDERED: pneumococcal 23-VAL P-sac vacc 25 mcg/0.5ml vial IMVAC ONE (10:00)
[2024-09-03] MEDS: VANCOMYCIN LEVEL IV ONE (10:30)
[2024-09-03] MEDS: Fluticasone/Umeclidin/Vilanter (Trelegy Ellipta 100-62.5-25) IH SCH (10:50)
[2024-09-03] MEDS: albuterol 2.5 MG/3 ML nebule NEB SCH (10:51)
[2024-09-03] MEDS: morphine 2 MG/ML inj. syringe IV PRN (11:30)
[2024-09-03] MEDS ORDERED: VANCOMYCIN/WATER FOR INJ (PEG) 1.25GM/250 ML IVPB IV SCH (12:00)
[2024-09-03] MEDS: VANCOmycin 1250MG/NS 250ml Bag 250 ML IV SCH (12:56)
[2024-09-03] MEDS: metFORMIN 500mg tablet PO SCH (20:26)
[2024-09-03] MEDS ORDERED: insulin glargine (Lantus) pen - multi-dose SQ SCH (21:00)
[2024-09-04] VITALS (11 sets, daily range): BP systolic 107–123; BP diastolic 67–73; PULSE 70–109; RESP 16–20; TEMP 97.9–98.8; O2SAT 93–97
[2024-09-04 06:30] LABS: BASOPHILS # (AUTO) 0.1 X10'3 (0-0.2); BASOPHILS % (AUTO) 1.3 % (0-1); EOSINOPHILS # (AUTO) 0.6 X10'3 (0-0.9); EOSINOPHILS % (AUTO) 7.7 % (0-6); HEMATOCRIT 35.2 % (42.0-52.0); HEMOGLOBIN 11.8 g/dl (14.0-17.9); LYMPHOCYTES # (AUTO) 2.4 X10'3 (1.1-4.8); LYMPHOCYTES % (AUTO) 29.2 % (21-51); MEAN CORPUSCULAR HEMOGLOBIN 26.9 PG (27.0-31.0); MEAN CORPUSCULAR HGB CONC 33.4 g/dL (33.0-36.5); MEAN CORPUSCULAR VOLUME 80.5 FL (78-98); MEAN PLATELET VOLUME 7.7 FL (7.4-10.4); MONOCYTES # (AUTO) 0.7 X10'3 (0-0.9); NEUTROPHILS # (AUTO) 4.3 X10'3 (1.8-7.7); NEUTROPHILS % (AUTO) 52.8 % (42-75); PLATELET COUNT 328 X10'3 (140-440); RED BLOOD COUNT 4.38 X10'6 (4.70-6.10); RED CELL DISTRIBUTION WIDTH 15.6 % (11.5-14.5); WHITE BLOOD COUNT 8.1 X10'3 (4.5-11.0)
[2024-09-04 06:47] LABS: ALANINE AMINOTRANSFERASE 14 U/L (12-78); ALBUMIN 2.4 G/DL (3.4-5.0); ALBUMIN/GLOBULIN RATIO 0.5 (1.1-1.5); ALKALINE PHOSPHATASE 98 IU/L (46-116); ANION GAP 8 (8-16); ASPARTATE AMINO TRANSFERASE 8 U/L (10-37); BILIRUBIN,TOTAL 0.2 MG/DL (0.1-1.0); BLOOD UREA NITROGEN 7 MG/DL (7-18); BUN/CREATININE RATIO 11.1 (10.0-20.0); CALCIUM 8.9 MG/DL (8.5-10.1); CHLORIDE 104 MMOL/L (99-107); CREATININE 0.63 MG/DL (0.60-1.10); GLUCOSE 189 MG/DL (70-104); PHOSPHORUS 4.5 MG/DL (2.3-4.5); POTASSIUM 4.6 MMOL/L (3.5-5.1); SODIUM 137 MMOL/L (135-145); TOTAL CARBON DIOXIDE 25.2 MMOL/L (24-32); eCRCL 138 ML/MIN; eGFR > 90 ML/MIN
[2024-09-04] MEDS: linagliptin 5mg tablet PO SCH (09:17)
[2024-09-04] MEDS: VANCOMYCIN LEVEL IV ONE (11:30)
[2024-09-04] MEDS ORDERED: HYDR-3972 PO (12:13)
[2024-09-04] MEDS ORDERED: METR-159 PO (13:56)
[2024-09-04] MEDS ORDERED: SITA50TA7 PO (13:56)
[2024-09-04] MEDS: metroNIDAZOLE 500mg tablet PO SCH (20:28)
[2024-09-04] MEDS: VANCOMYCIN 1,500MG in normal saline IV soln 300 ML IV SCH (20:29)
[2024-09-05] VITALS (10 sets, daily range): BP systolic 98–124; BP diastolic 61–78; PULSE 77–103; RESP 15–18; TEMP 97.3–98.2; O2SAT 95–99
[2024-09-05 06:15] LABS: BASOPHILS # (AUTO) 0.1 X10'3 (0-0.2); BASOPHILS % (AUTO) 1.2 % (0-1); EOSINOPHILS # (AUTO) 0.6 X10'3 (0-0.9); EOSINOPHILS % (AUTO) 6.5 % (0-6); HEMATOCRIT 36.6 % (42.0-52.0); HEMOGLOBIN 12.1 g/dl (14.0-17.9); LYMPHOCYTES # (AUTO) 2.1 X10'3 (1.1-4.8); MEAN CORPUSCULAR HEMOGLOBIN 26.6 PG (27.0-31.0); MEAN CORPUSCULAR HGB CONC 33.1 g/dL (33.0-36.5); MEAN CORPUSCULAR VOLUME 80.3 FL (78-98); MEAN PLATELET VOLUME 7.6 FL (7.4-10.4); MONOCYTES # (AUTO) 0.6 X10'3 (0-0.9); MONOCYTES % (AUTO) 6.7 % (2-12); NEUTROPHILS # (AUTO) 6.2 X10'3 (1.8-7.7); NEUTROPHILS % (AUTO) 63.6 % (42-75); PLATELET COUNT 374 X10'3 (140-440); RED BLOOD COUNT 4.56 X10'6 (4.70-6.10); RED CELL DISTRIBUTION WIDTH 15.9 % (11.5-14.5); WHITE BLOOD COUNT 9.8 X10'3 (4.5-11.0)
[2024-09-05 06:54] LABS: ALANINE AMINOTRANSFERASE 8 U/L (12-78); ALBUMIN 2.6 G/DL (3.4-5.0); ALBUMIN/GLOBULIN RATIO 0.5 (1.1-1.5); ALKALINE PHOSPHATASE 108 IU/L (46-116); ANION GAP 7 (8-16); ASPARTATE AMINO TRANSFERASE 9 U/L (10-37); BILIRUBIN,TOTAL 0.3 MG/DL (0.1-1.0); BLOOD UREA NITROGEN 11 MG/DL (7-18); BUN/CREATININE RATIO 16.7 (10.0-20.0); CALCIUM 9.4 MG/DL (8.5-10.1); CHLORIDE 104 MMOL/L (99-107); CREATININE 0.66 MG/DL (0.60-1.10); GLUCOSE 144 MG/DL (70-104); PHOSPHORUS 4.5 MG/DL (2.3-4.5); POTASSIUM 4.5 MMOL/L (3.5-5.1); SODIUM 139 MMOL/L (135-145); TOTAL CARBON DIOXIDE 27.8 MMOL/L (24-32); TOTAL PROTEIN 7.5 G/DL (6.4-8.2); eCRCL 132 ML/MIN; eGFR > 90 ML/MIN
[2024-09-05] MEDS: VANCOMYCIN LEVEL IV ONE (20:28)
[2024-09-06 07:49] VITALS: BP_SYST 110
[2024-09-06] MEDS: linagliptin 5mg tablet PO SCH (07:49)
[2024-09-06 08:13] LABS: BASOPHILS # (AUTO) 0.1 X10'3 (0-0.2); BASOPHILS % (AUTO) 1.3 % (0-1); EOSINOPHILS # (AUTO) 0.7 X10'3 (0-0.9); EOSINOPHILS % (AUTO) 7.8 % (0-6); HEMATOCRIT 36.4 % (42.0-52.0); HEMOGLOBIN 12.1 g/dl (14.0-17.9); LYMPHOCYTES # (AUTO) 2.5 X10'3 (1.1-4.8); MEAN CORPUSCULAR HEMOGLOBIN 26.7 PG (27.0-31.0); MEAN CORPUSCULAR HGB CONC 33.2 g/dL (33.0-36.5); MEAN CORPUSCULAR VOLUME 80.2 FL (78-98); MEAN PLATELET VOLUME 7.5 FL (7.4-10.4); MONOCYTES # (AUTO) 0.7 X10'3 (0-0.9); MONOCYTES % (AUTO) 7.9 % (2-12); NEUTROPHILS # (AUTO) 4.6 X10'3 (1.8-7.7); PLATELET COUNT 380 X10'3 (140-440); RED BLOOD COUNT 4.53 X10'6 (4.70-6.10); RED CELL DISTRIBUTION WIDTH 15.8 % (11.5-14.5); WHITE BLOOD COUNT 8.6 X10'3 (4.5-11.0)
[2024-09-06 08:16] VITALS: PULSE 90; PULSE 92; RESP 16; O2SAT 98
[2024-09-06 08:30] LABS: ALANINE AMINOTRANSFERASE 32 U/L (12-78); ALBUMIN 2.5 G/DL (3.4-5.0); ALBUMIN/GLOBULIN RATIO 0.6 (1.1-1.5); ALKALINE PHOSPHATASE 91 IU/L (46-116); ANION GAP 7 (8-16); ASPARTATE AMINO TRANSFERASE 33 U/L (10-37); BILIRUBIN,TOTAL 0.2 MG/DL (0.1-1.0); BLOOD UREA NITROGEN 15 MG/DL (7-18); BUN/CREATININE RATIO 20.5 (10.0-20.0); CALCIUM 8.7 MG/DL (8.5-10.1); CHLORIDE 104 MMOL/L (99-107); CREATININE 0.73 MG/DL (0.60-1.10); GLUCOSE 130 MG/DL (70-104); MAGNESIUM 1.8 MG/DL (1.5-2.4); POTASSIUM 4.6 MMOL/L (3.5-5.1); SODIUM 137 MMOL/L (135-145); eCRCL 119 ML/MIN; eGFR > 90 ML/MIN
[2024-09-06 08:32] VITALS: RESP 16
== END 2024-09-06 11:20 | disposition home or self-care (01) | DRG 344 ==
LOC: ER 08:53 → ED HOLD 12:12 → EDBEDREQ 17:07 → ORTHO 4S 19:00
PROVIDERS: ADMIT Internal Medicine; ATTEND Internal Medicine
PROC: 02HV33Z Insertion of Infusion Device into Superior Vena Cava, Percutaneous Approach (ICD-10-PCS; principal; 2024-09-04)
PROC: 4A02X4A Measurement of Cardiac Electrical Activity, Guidance, External Approach (ICD-10-PCS; 2024-09-04)
DX: E11.69 Type 2 diabetes mellitus with other specified complication (principal); M86.8X7 Other osteomyelitis, ankle and foot; S91.301A Unspecified open wound, right foot, initial encounter; E11.65 Type 2 diabetes mellitus with hyperglycemia; I10 Essential (primary) hypertension; E86.0 Dehydration; L97.518 Non-pressure chronic ulcer of other part of right foot with other specified severity; X58.XXXA Exposure to other specified factors, initial encounter; G89.4 Chronic pain syndrome; J45.909 Unspecified asthma, uncomplicated; Z79.84 Long term (current) use of oral hypoglycemic drugs; Z79.899 Other long term (current) drug therapy; Y93.89 Activity, other specified; Y92.89 Other specified places as the place of occurrence of the external cause; Y99.8 Other external cause status
CPT/HCPCS: 36415; 36569; 71045; 73630; 73720; 76942; 80053; 80202; 80305; 81001; 82948; 83036; 83605; 83690; 83735; 83880; 84100; 84145; 85025; 85610; 85651; 86140; 87040; 87077; 87081; 93926; 93971; 94640; 94760; 96365; 96367; 97161; 97760; 99285; A4649; A6196; A6222; A6223; A6258; A6446; A6449; A9575; C1751; G0378; J0696; J1171; J1650; J1815; J2270; J3370; J3372; J3490; J7030; J7040

== ENCOUNTER 2024-12-25 12:12 | Emergency (ER) | payer MEDICAID ==
[~2024-12-25] VITALS: Ht 167.6 cm; Wt 85.2 kg
[~2024-12-25 12:12] MED LIST changes: -ACET-1 PO; +ATOM25CA PO; -BECL10.62 PO; -DEXT30CA6 PO; +FLUT1BLS4 INH; +HYDR-3972 PO; +NICO4GUM29 PO; -PHEN28OI10 RC; -PRED20TA PO; -SERT-433 PO; -SULF1TAB45 PO
[2024-12-25 12:13] VITALS: BP 124/83; PULSE 109; RESP 16; TEMP 98.2; O2SAT 98
[2024-12-25 13:02] LABS: BASOPHILS # (AUTO) 0.1 X10'3 (0-0.2); BASOPHILS % (AUTO) 0.8 % (0-1); EOSINOPHILS # (AUTO) 0.2 X10'3 (0-0.9); EOSINOPHILS % (AUTO) 2.6 % (0-6); HEMATOCRIT 35.3 % (42.0-52.0); HEMOGLOBIN 11.3 g/dl (14.0-17.9); LYMPHOCYTES # (AUTO) 1.1 X10'3 (1.1-4.8); LYMPHOCYTES % (AUTO) 11.7 % (21-51); MEAN CORPUSCULAR HEMOGLOBIN 24.9 PG (27.0-31.0); MEAN CORPUSCULAR HGB CONC 32.1 g/dL (33.0-36.5); MEAN CORPUSCULAR VOLUME 77.8 FL (78-98); MONOCYTES # (AUTO) 0.6 X10'3 (0-0.9); MONOCYTES % (AUTO) 6.3 % (2-12); NEUTROPHILS # (AUTO) 7.1 X10'3 (1.8-7.7); NEUTROPHILS % (AUTO) 78.6 % (42-75); PLATELET COUNT 451 X10'3 (140-440); RED BLOOD COUNT 4.54 X10'6 (4.70-6.10); RED CELL DISTRIBUTION WIDTH 15.6 % (11.5-14.5)
[2024-12-25 13:14] LABS: ALANINE AMINOTRANSFERASE 24 U/L (12-78); ALBUMIN 2.8 G/DL (3.4-5.0); ALBUMIN/GLOBULIN RATIO 0.5 (1.1-1.5); ALKALINE PHOSPHATASE 164 IU/L (46-116); ANION GAP 6 (8-16); ASPARTATE AMINO TRANSFERASE 11 U/L (10-37); BILIRUBIN,TOTAL 0.2 MG/DL (0.1-1.0); BLOOD UREA NITROGEN 14 MG/DL (7-18); BUN/CREATININE RATIO 17.9 (10.0-20.0); CALCIUM 8.7 MG/DL (8.5-10.1); CHLORIDE 104 MMOL/L (99-107); CREATININE 0.78 MG/DL (0.60-1.10); GLUCOSE 251 MG/DL (70-104); LIPASE 26 U/L (16-77); POTASSIUM 4.2 MMOL/L (3.5-5.1); SODIUM 138 MMOL/L (135-145); TOTAL CARBON DIOXIDE 27.8 MMOL/L (24-32); TOTAL PROTEIN 8.5 G/DL (6.4-8.2); eCRCL 111 ML/MIN; eGFR > 90 ML/MIN
== END 2024-12-25 14:55 | disposition left against medical advice (07) ==
LOC: ER 12:13
DX: S90.922A Unspecified superficial injury of left foot, initial encounter (principal); E11.621 Type 2 diabetes mellitus with foot ulcer; I10 Essential (primary) hypertension; J45.909 Unspecified asthma, uncomplicated; X58.XXXA Exposure to other specified factors, initial encounter; Y93.89 Activity, other specified; Y92.89 Other specified places as the place of occurrence of the external cause; Y99.8 Other external cause status
CPT/HCPCS: 36415; 80053; 83690; 85025; 99283